=== PATIENT | male | born 1960 | race Caucasian/White ===

== ENCOUNTER 2017-07-29 01:50 | Inpatient (IN) | payer OTHER ==
[~2017-07-29] VITALS: Ht 182.9 cm; Wt 115.0 kg
[2017-07-29] VITALS (16 sets, daily range): BP systolic 96–167; BP diastolic 64–114
[2017-07-29 02:33] LABS: D-DIMER 2.28 MG/L FEU (0-0.50)
[2017-07-29 02:43] LABS: CHOL/HDL RATIO 2.5 (0.00-4.99); CHOLESTEROL 210 MG/DL (0-200); HDL CHOLESTEROL 85 MG/DL (35-60)
[2017-07-29 02:44] LABS: LDL CHOLESTEROL 110 MG/DL (50-100); TRIGLYCERIDES 90 MG/DL (20-135)
[2017-07-29] MEDS ORDERED: mag hydrox/Alum hydrox/simeth 30ml oral suspension PO PRN (02:45)
[2017-07-29] MEDS ORDERED: magnesium hydroxide 30ml (MOM) UD suspension PO PRN (02:45)
[2017-07-29] MEDS ORDERED: ondansetron/PF 4mg/2ml inj IV PRN (02:45)
[2017-07-29] MEDS ORDERED: acetaminophen 325mg tablet PO PRN (02:45)
[2017-07-29] MEDS ORDERED: iohexol 350MG/ML 100ml bottle IV ONE (03:02)
[2017-07-29] MEDS ORDERED: NO HOME MEDS (07:40)
[2017-07-29] MEDS: enoxaparin 40mg/0.4ml syringe SUBCUT SCH (08:26)
[2017-07-29] MEDS ORDERED: metoprolol tartrate 1mg/ml inj IV PRN (10:25)
[2017-07-29] MEDS ORDERED: regadenoson 0.4mg/5ml syringe IV ONE ×2 (10:25→13:32)
[2017-07-29] MEDS ORDERED: aminophylline 250mg/10ml inj. IV PRN (10:25)
[2017-07-29] MEDS ORDERED: nitroGLYCERIN 0.4mg SUBLingual tab SL PRN (10:25)
[2017-07-29] MEDS ORDERED: aminophylline inj. 10 ML IV ONE (13:32)
[2017-07-29] MEDS: amiodarone 200mg tablet PO SCH ×2 (15:56→19:25)
[2017-07-29] MEDS: carVEDilol 3.125mg tablet PO SCH ×2 (15:56→19:25)
[2017-07-29] MEDS: lisinopril 5mg tablet PO SCH (20:51)
[2017-07-30 02:00] VITALS: BP 110/73
[2017-07-30 06:35] VITALS: BP 134/84
[2017-07-30 07:20] LABS: BASOPHILS % (AUTO) 0.5 % (0-1); EOSINOPHILS # (AUTO) 0.1 X10'3 (0-0.9); HEMATOCRIT 42.7 % (42.0-52.0); HEMOGLOBIN 14.3 g/dl (14.0-17.9); LYMPHOCYTES # (AUTO) 1.9 X10'3 (1.1-4.8); MEAN CORPUSCULAR HEMOGLOBIN 33.3 PG (27.0-31.0); MEAN CORPUSCULAR HGB CONC 33.4 % (33.0-36.5); MEAN CORPUSCULAR VOLUME 99.6 FL (78-98); MEAN PLATELET VOLUME 9.1 FL (7.4-10.4); MONOCYTES # (AUTO) 0.6 X10'3 (0-0.9); MONOCYTES % (AUTO) 7.2 % (2-12); NEUTROPHILS # (AUTO) 6.2 X10'3 (1.8-7.7); NEUTROPHILS % (AUTO) 70.3 % (42-75); PLATELET COUNT 175 X10'3 (140-440); RED BLOOD COUNT 4.29 X10'6 (4.70-6.10); RED CELL DISTRIBUTION WIDTH 13.4 % (11.5-14.5); WHITE BLOOD COUNT 8.8 X10'3 (4.5-11.0)
[2017-07-30 07:40] LABS: ALANINE AMINOTRANSFERASE 56 U/L (12-78); ALBUMIN 3.1 G/DL (3.4-5.0); ALBUMIN/GLOBULIN RATIO 0.9 (1.1-1.5); ALKALINE PHOSPHATASE 73 IU/L (46-116); ANION GAP 5 (8-16); ASPARTATE AMINO TRANSFERASE 58 U/L (10-37); BILIRUBIN,TOTAL 1.3 MG/DL (0.1-1.0); BLOOD UREA NITROGEN 16 MG/DL (7-18); CALCIUM 8.6 MG/DL (8.5-10.1); CHLORIDE 102 MMOL/L (99-107); GLUCOSE 104 MG/DL (70-104); POTASSIUM 4.4 MMOL/L (3.5-5.1); SODIUM 136 MMOL/L (135-145); TOTAL CARBON DIOXIDE 29.4 MMOL/L (24-32); TOTAL PROTEIN 6.6 G/DL (6.4-8.2); eGFR 78 ML/MIN
[2017-07-30] MEDS: enoxaparin 40mg/0.4ml syringe SUBCUT SCH (09:24)
[2017-07-30] MEDS: carVEDilol 3.125mg tablet PO SCH ×2 (09:24→20:08)
[2017-07-30] MEDS: amiodarone 200mg tablet PO SCH ×2 (09:24→20:08)
[2017-07-30 11:00] VITALS: BP 124/84
[2017-07-30 15:00] VITALS: BP 118/79
[2017-07-30 19:00] VITALS: BP 119/78
[2017-07-30] MEDS: apixaban 5mg tablet PO SCH (20:07)
[2017-07-30] MEDS: lisinopril 5mg tablet PO SCH (21:50)
[2017-07-30 23:00] VITALS: BP 110/66
[2017-07-31 03:00] VITALS: BP 118/68
[2017-07-31 05:53] LABS: ALANINE AMINOTRANSFERASE 49 U/L (12-78); ALBUMIN/GLOBULIN RATIO 0.8 (1.1-1.5); ALKALINE PHOSPHATASE 67 IU/L (46-116); ANION GAP 8 (8-16); ASPARTATE AMINO TRANSFERASE 41 U/L (10-37); BILIRUBIN,TOTAL 1.2 MG/DL (0.1-1.0); BLOOD UREA NITROGEN 19 MG/DL (7-18); BUN/CREATININE RATIO 21.1 (5.4-32.0); CALCIUM 8.8 MG/DL (8.5-10.1); CHLORIDE 102 MMOL/L (99-107); GLUCOSE 95 MG/DL (70-104); MAGNESIUM 1.6 MG/DL (1.5-2.4); PHOSPHORUS 3.8 MG/DL (2.3-4.5); POTASSIUM 3.9 MMOL/L (3.5-5.1); SODIUM 139 MMOL/L (135-145); TOTAL CARBON DIOXIDE 29.4 MMOL/L (24-32); TOTAL PROTEIN 6.7 G/DL (6.4-8.2); eGFR 88 ML/MIN
[2017-07-31 06:00] VITALS: BP 119/80
[2017-07-31] MEDS: carVEDilol 3.125mg tablet PO SCH (07:45)
[2017-07-31] MEDS: apixaban 5mg tablet PO SCH (07:45)
[2017-07-31] MEDS: amiodarone 200mg tablet PO SCH (07:45)
[2017-07-31] MEDS ORDERED: COR3.125T PO (11:47)
[2017-07-31] MEDS ORDERED: LISI-604 PO (11:47)
[2017-07-31] MEDS ORDERED: AMIO200T57 PO (11:47)
[2017-07-31] MEDS ORDERED: APIX5TAB3 PO (12:02)
== END 2017-07-31 13:00 | disposition home or self-care (01) | DRG 308 ==
LOC: ER 01:51 → ED HOLD 02:43 → EDBEDREQ 03:56 → PCU 3S 04:48
PROVIDERS: ADMIT Internal Medicine; ATTEND Internal Medicine
PROC: B32T1ZZ Computerized Tomography (CT Scan) of Left Pulmonary Artery using Low Osmolar Contrast (ICD-10-PCS; principal; 2017-07-29)
PROC: B3201ZZ Computerized Tomography (CT Scan) of Thoracic Aorta using Low Osmolar Contrast (ICD-10-PCS; 2017-07-29)
PROC: B32S1ZZ Computerized Tomography (CT Scan) of Right Pulmonary Artery using Low Osmolar Contrast (ICD-10-PCS; 2017-07-29)
PROC: 4A02XM4 Measurement of Cardiac Total Activity, External Approach (ICD-10-PCS; 2017-07-29)
PROC: 3E073KZ Introduction of Other Diagnostic Substance into Coronary Artery, Percutaneous Approach (ICD-10-PCS; 2017-07-29)
PROC: 5A2204Z Restoration of Cardiac Rhythm, Single (ICD-10-PCS; 2017-07-29)
DX: I48.92 Unspecified atrial flutter (principal); I50.23 Acute on chronic systolic (congestive) heart failure; I42.9 Cardiomyopathy, unspecified; K70.9 Alcoholic liver disease, unspecified; I48.91 Unspecified atrial fibrillation; I47.1 Supraventricular tachycardia; B34.9 Viral infection, unspecified; E66.9 Obesity, unspecified; G47.30 Sleep apnea, unspecified; I11.0 Hypertensive heart disease with heart failure; I25.10 Atherosclerotic heart disease of native coronary artery without angina pectoris; L40.9 Psoriasis, unspecified; R63.4 Abnormal weight loss; Z79.899 Other long term (current) drug therapy; Z79.01 Long term (current) use of anticoagulants; Z79.82 Long term (current) use of aspirin; Z68.34 Body mass index [BMI] 34.0-34.9, adult; Z82.49 Family history of ischemic heart disease and other diseases of the circulatory system; Z87.891 Personal history of nicotine dependence
CPT/HCPCS: 36415; 71275; 78452; 80053; 83735; 83880; 84100; 84484; 85025; 85379; 87070; 87502; 87503; 93005; 93017; 93306; 99285; A9500; J0280; J1650; J7030; Q9967

== ENCOUNTER 2017-12-24 11:19 | Day surgery (SDC) | payer BC ==
[2017-12-24] VITALS (14 sets, daily range): BP systolic 113–183; BP diastolic 68–131
[~2017-12-24] VITALS: Ht 182.9 cm; Wt 116.9 kg
[~2017-12-24 11:19] MED LIST: AMIO200T57 PO; APIX5TAB3 PO; COR3.125T PO; LISI-604 PO
[2017-12-24] MEDS ORDERED: amiodarone in dextrose, iso-osm 150mg/100ml bag IV ONE (11:45)
[2017-12-24] MEDS ORDERED: diphenhydrAMINE 25mg capsule PO ONE ×2 (11:45)
[2017-12-24] MEDS ORDERED: atropine 0.1mg/ml 10ml syringe IV ONE (11:45)
[2017-12-24] MEDS ORDERED: morphine 10mg/ml inj. IV ONE (11:45)
[2017-12-24] MEDS ORDERED: normal saline 1000ml 1,000 ML IV SCH (11:45)
[2017-12-24] MEDS ORDERED: MIDAZolam 5mg/ml 2ml vial IV ONE (11:45)
[2017-12-24] MEDS ORDERED: LORazepam 0.5 MG tablet PO ONE (11:45)
[2017-12-24] MEDS ORDERED: APIX5TAB3 PO (11:52)
[2017-12-24] MEDS ORDERED: LISI10TA4 PO (11:52)
[2017-12-24] MEDS ORDERED: CARV6.253 PO (11:52)
[2017-12-24] MEDS ORDERED: FLEC100T PO (11:52)
== END 2017-12-24 14:30 | disposition home or self-care (01) ==
LOC: SSTAY O 11:19
PROVIDERS: ATTEND Internal Medicine Cardiovascular Disease
DX: I48.91 Unspecified atrial fibrillation (principal); I48.92 Unspecified atrial flutter; I42.0 Dilated cardiomyopathy; I11.0 Hypertensive heart disease with heart failure; I50.22 Chronic systolic (congestive) heart failure; I34.0 Nonrheumatic mitral (valve) insufficiency; I36.1 Nonrheumatic tricuspid (valve) insufficiency; G47.33 Obstructive sleep apnea (adult) (pediatric); E66.3 Overweight; I25.10 Atherosclerotic heart disease of native coronary artery without angina pectoris; L40.8 Other psoriasis; Z87.891 Personal history of nicotine dependence; Z72.89 Other problems related to lifestyle; Z68.35 Body mass index [BMI] 35.0-35.9, adult; Z79.01 Long term (current) use of anticoagulants; Z79.899 Other long term (current) drug therapy; Z98.890 Other specified postprocedural states
CPT/HCPCS: 92960; 93005; J2250; J2270; J7030; J0282; J0461

== ENCOUNTER 2018-09-25 16:34 | Inpatient (IN) | payer OTHER ==
[~2018-09-25] VITALS: Ht 172.7 cm; Wt 100.0 kg
[~2018-09-25 16:34] MED LIST changes: -AMIO200T57 PO; +CARV6.253 PO; -COR3.125T PO; +FLEC100T PO; +LIDOcaine 2% (20 mg/ml) 5ml cardiac syringe ONE; -LISI-604 PO; +LISI10TA4 PO; +calcium chloride 100 MG/1 ML inj IV ONE; +epiNEPHrine 0.1mg/ml 10ml syringe ONE; +magnesium sulf 1 GM/2 ML ONE; +sod chloride 0.9% 10ml flush syringe IV ONE; +sodium bicarbonate (8.4%) 1 mEq/ml syringe ONE
[2018-09-25 16:50] LABS: ISTAT CREATININE 3.2 mg/dL (0.8-1.3); ISTAT HGB 16.7 g/dl (14.0-18.0); ISTAT IONIZED CALCIUM 1.07 mmol/L (1.03-1.32); POC BUN/CREATININE RATIO 35.9 (5.4-32.0)
[2018-09-25] MEDS ORDERED: amiodarone/D5 360MG/200ML BAG 200 ML IV SCH (16:50)
[2018-09-25 17:04] LABS: ISTAT K 6.2 mmol/L (3.5-5.1)
[2018-09-25 17:22] LABS: EOSINOPHILS # (AUTO) 0.1 X10'3 (0-0.9); HEMOGLOBIN 14.9 g/dl (14.0-17.9)
[2018-09-25 17:23] LABS: BASOPHILS # (AUTO) 0.1 X10'3 (0-0.2); BASOPHILS % (AUTO) 1.2 % (0-1); EOSINOPHILS % (AUTO) 0.9 % (0-6); LYMPHOCYTES # (AUTO) 6.2 X10'3 (1.1-4.8); MEAN CORPUSCULAR HEMOGLOBIN 35.6 PG (27.0-31.0); MEAN CORPUSCULAR HGB CONC 33.9 g/dL (33.0-36.5); MONOCYTES # (AUTO) 0.5 X10'3 (0-0.9); MONOCYTES % (AUTO) 5.1 % (2-12); NEUTROPHILS # (AUTO) 2.2 X10'3 (1.8-7.7); NEUTROPHILS % (AUTO) 23.8 % (42-75); PLATELET COUNT 114 X10'3 (140-440); RED BLOOD COUNT 4.19 X10'6 (4.70-6.10); RED CELL DISTRIBUTION WIDTH 13.8 % (11.5-14.5); WHITE BLOOD COUNT 9.1 X10'3 (4.5-11.0)
[2018-09-25 17:40] LABS: ANISOCYTOSIS 1+; PLATELET ESTIMATE DECREASED; TOTAL CELLS COUNTED 100
[2018-09-25 17:41] LABS: STOMATOCYTES 2+
--- NOTE | 2018-09-25 17:41 | NUR ---
Don father [phone] gege [phone]
[2018-09-25 17:43] LABS: CLARITY,URINE CLOUDY (Clear); COLOR,URINE YELLOW (Yellow); GLUCOSE, URINE 250 mg/dl (Neg); KETONES,URINE NEGATIVE (Neg); LEUKOCYTE ESTERASE ,URINE TRACE (Neg); NITRITES, URINE NEGATIVE (Neg); OCCULT BLOOD,URINE MODERATE (Neg); PROTEIN,URINE 100 mg/dl (Neg); UA COLLECTION TYPE FOLEY CATH; UROBILINOGEN,URINE 0.2 E.U/dL (0.2-1.0)
[2018-09-25 17:47] LABS: ALBUMIN/GLOBULIN RATIO 0.7 (1.1-1.5); ALKALINE PHOSPHATASE 103 IU/L (46-116); ANION GAP 22 (8-16); BILIRUBIN,TOTAL 0.6 MG/DL (0.1-1.0); BLOOD UREA NITROGEN 89 MG/DL (7-18); BUN/CREATININE RATIO 30.8 (5.4-32.0); CALCIUM 9.6 MG/DL (8.5-10.1); CHLORIDE 97 MMOL/L (99-107); CREATININE 2.89 MG/DL (0.60-1.10); SODIUM 131 MMOL/L (135-145); TOTAL PROTEIN 7.4 G/DL (6.4-8.2); eGFR 23 ML/MIN
[2018-09-25 17:48] LABS: GLUCOSE 177 MG/DL (70-104)
[2018-09-25 17:50] LABS: TOTAL CARBON DIOXIDE 11.7 MMOL/L (24-32)
[2018-09-25 17:57] LABS: SQUAMOUS EPITHELIAL CELL,UR MODERATE /LPF (FEW)
[2018-09-25 17:58] LABS: AMORPHOUS URATES 2+
[2018-09-25 18:00] LABS: INR 1.3 INR; PARTIAL THROMBOPLASTIN TIME 43 SECONDS (22-32); PROTHROMBIN TIME 12.6 SECONDS (9.0-12.0)
[2018-09-25 18:01] LABS: ABG BASE EXCESS -17.1 mmol/L (-2.0-3.0); ABG HCO3 10.3 mmol/L (22.0-26.0); ABG OXYGEN SATURATION 98.2 % (95-98); ABG PCO2 (T) 30.1 mmHg (35.0-48.0); ABG PH (T) 7.154 (7.350-7.450); ABG PO2 (T) 126.6 mmHg (83-108); ALLEN'S TEST Positive; FCOHb 0.3 % (0.5-1.5); FMetHb 0.3 % (0.3-1.12); FO2Hb 97.6 % (94-100); PEEP 5 cm H2O; RESPIRATORY RATE 16 b/min; TIDAL VOLUME 425 mL; TOTAL HEMOGLOBIN 14.6 G/dl (14.0-18.0)
[2018-09-25 18:01] LABS: ALANINE AMINOTRANSFERASE 52 U/L (12-78); ASPARTATE AMINO TRANSFERASE 56 U/L (10-37)
[2018-09-25 18:04] LABS: BACTERIA,URINE 1+ /HPF (Neg)
[2018-09-25] MEDS ORDERED: normal saline 1000ml 1,000 ML IV SCH (18:09)
[2018-09-25] MEDS ORDERED: ipratropium/albuterol 3ml nebule NEB PRN (18:10)
[2018-09-25] MEDS ORDERED: sodium phosphate inj. 30 MMOL in dextrose 5%-water 250 ML IV PRN (18:10)
[2018-09-25] MEDS ORDERED: bisacodyl 10mg suppository rectal RC PRN (18:10)
[2018-09-25] MEDS ORDERED: tranexamic acid 100mg/ml inj. IV ONE (18:10)
[2018-09-25] MEDS ORDERED: ondansetron/PF 4mg/2ml inj IV PRN (18:10)
[2018-09-25] MEDS ORDERED: magnesium 2GM in 50ml NS 50 ML IV PRN (18:10)
[2018-09-25] MEDS ORDERED: potassium Cl 20 mEq SR tablet PO PRN ×2 (18:10)
[2018-09-25] MEDS ORDERED: magnesium 4gm in 100ml NS 100 ML IV PRN (18:10)
[2018-09-25] MEDS ORDERED: acetaminophen 325mg tablet PO PRN ×2 (18:10)
[2018-09-25] MEDS ORDERED: magnesium Cl slow-release 64mg tablet PO PRN (18:10)
[2018-09-25] MEDS ORDERED: sodium phosphate inj. 15 MMOL in dextrose 5%-water 150 ML IV PRN (18:10)
[2018-09-25] MEDS ORDERED: Neutra Phos packet PO PRN (18:10)
--- NOTE | 2018-09-25 18:14 | NUR ---
NOTIFIED DR RESENDIZ AND DR HILL, PT HAS BRIGHT RED DIARRHEA.
[2018-09-25] MEDS ORDERED: pantoprazole 40MG/NS 100ML BAG 100 ML IV SCH (18:30)
[2018-09-25] MEDS ORDERED: CISatracurium besylate inj. 200 MG in normal saline 250ml IV soln 180 ML IV PRN (18:35)
[2018-09-25] MEDS ORDERED: dextrose 50%-water 50ml dispensing syringe IV PRN (18:35)
[2018-09-25 18:37] LABS: AMYLASE 100 U/L (25-115); LIPASE 375 U/L (73-393)
[2018-09-25 19:00] VITALS: BP 131/85
--- NOTE | 2018-09-25 19:00 | NUR ---
Patient in room ICU 2042. I have received report from Kareen SANCHEZ and had the opportunity to ask questions and assume patient care.
--- NOTE | 2018-09-25 19:20 | NUR ---
attempted to roll patient to place cooling pads and clean patient up. Patient started to have bright red blood stool and bright red blood emesis, started to suction patient. Patient then went into Vtach. Patient placed onto back and CPR started. See CPR flowsheet. Patient coded a second time. At that time patients mother in the room and on the phone with Lola. Lola Requested that patient be made a DNR. Patient at 2011
[2018-09-25] MEDS ORDERED: FENTANYL-0.9 % NACL/PF 100 ML IV PRN (19:31)
[2018-09-25] MEDS ORDERED: midazolam 100mg in NS 100ml 100 ML IV PRN (19:31)
[2018-09-25] MEDS ORDERED: NORepinephrine 8mg/ 250ml NS 250 ML IV ONE (19:38)
[2018-09-25 20:00] LABS: PO2 MIXED VENOUS (TEMP COR) 55.5 mmHg (35-46)
[2018-09-25] MEDS ORDERED: methylPREDNISolone sod succ 125mg/2ml vial IV SCH (20:00)
[2018-09-25] MEDS ORDERED: docusate sod 100mg capsule PO SCH (20:00)
[2018-09-25] MEDS ORDERED: vancomycin/NS 1 GM ADD-VANTAGE 250 ML IV SCH (20:00)
[2018-09-25 20:06] LABS: ALBUMIN 1.7 G/DL (3.4-5.0); BLOOD UREA NITROGEN 74 MG/DL (7-18); BUN/CREATININE RATIO 27.7 (5.4-32.0); CALCIUM 8.9 MG/DL (8.5-10.1); CHLORIDE 108 MMOL/L (99-107); CREATININE 2.67 MG/DL (0.60-1.10); GLUCOSE 227 MG/DL (70-104); TOTAL CARBON DIOXIDE 15.6 MMOL/L (24-32); eGFR 25 ML/MIN
[2018-09-25 20:22] LABS: ANION GAP 11 (8-16); SODIUM 135 MMOL/L (135-145)
--- NOTE | 2018-09-25 22:04 | NUR ---
Notified [employer] Darya of patient. Patient is released. Notified [facility]. Patient is a candidate.
[2018-09-25] MEDS ORDERED: albuterol 2.5 MG/3 ML nebule NEB SCH (23:00)
[2018-09-26] MEDS ORDERED: piperacillin/tazo 3.375gm/50ml 50 ML IV SCH
[2018-09-26] MEDS ORDERED: pantoprazole 40 MG vial IV SCH (08:00)
[2018-09-26] MEDS ORDERED: insulin Lispro (HumaLOG) vial - multi-dose SQ SCH (09:00)
[2018-09-26] MEDS ORDERED: mineral oil/petrolatum ophthal oint EACHEYE SCH (20:00)
[2018-09-27] MEDS ORDERED: lactulose 20gm/30ml cup PO PRN (18:10)
== END 2018-09-25 20:12 | disposition expired | DRG 208 ==
LOC: ER 16:36 → EDBD 16:36 → MERGE 18:14 → ICU 2S 18:14
PROVIDERS: ADMIT Internal Medicine Critical Care Medicine; ATTEND Internal Medicine Critical Care Medicine
PROC: 5A1935Z Respiratory Ventilation, Less than 24 Consecutive Hours (ICD-10-PCS; principal; 2018-09-25)
PROC: 0BH17EZ Insertion of Endotracheal Airway into Trachea, Via Natural or Artificial Opening (ICD-10-PCS; 2018-09-25)
PROC: 06HY33Z Insertion of Infusion Device into Lower Vein, Percutaneous Approach (ICD-10-PCS; 2018-09-25)
PROC: B54CZZA Ultrasonography of Left Lower Extremity Veins, Guidance (ICD-10-PCS; 2018-09-25)
PROC: 5A12012 Performance of Cardiac Output, Single, Manual (ICD-10-PCS; 2018-09-25)
DX: J96.00 Acute respiratory failure, unspecified whether with hypoxia or hypercapnia (principal); N17.9 Acute kidney failure, unspecified; I10 Essential (primary) hypertension; I46.9 Cardiac arrest, cause unspecified; I48.91 Unspecified atrial fibrillation; I49.01 Ventricular fibrillation; Z66 Do not resuscitate
CPT/HCPCS: 36415; 36600; 70450; 71045; 80047; 80048; 80053; 81001; 82150; 82803; 82810; 83605; 83690; 84145; 84439; 84443; 84484; 85018; 85025; 85610; 85730; 86885; 87040; 87088; 92950; 93005; 94002; 94760; 99291; C9113; G0378; J0171; J2001; J2543; J3475; J3490; J7030